=== PATIENT | female | born 1990 | race Caucasian/White ===

== ENCOUNTER 2017-02-27 06:14 | Day surgery (SDC) | payer OTHER ==
[~2017-02-27 06:14] MED LIST: Lactated Ringers 1,000 ML IV SCH
[2017-02-27] MEDS ORDERED: DIPRIVAN 200 MG/20 ML IV ONE (08:00)
[2017-02-27] MEDS ORDERED: Ketamine HCl 50 MG/ML IJ ONE (08:00)
[2017-02-27 09:18] VITALS: BP 130/82; PULSE 61; O2SAT 99
--- NOTE | 2017-02-27 09:29 | OP ---
SURGERY DATE/TIME: 02/27/2017 0743 PREOPERATIVE DIAGNOSIS: Rectal bleeding. POSTOPERATIVE DIAGNOSIS: Normal colon. PROCEDURE: Colonoscopy. SURGEON: Dr. Estrada. ANESTHESIA: MAC. Medications given by anesthesia department. HISTORY: The patient is a 26 year-old white female who reports that she has been having problems with intermittent rectal bleeding. The patient was felt the need to have endoscopic evaluation. The patient was appraised of the risks of the procedure including the risk of perforation, phlebitis, bleeding, and missed lesions. The patient verbalized her understanding and desired to have the procedure performed. DESCRIPTION OF PROCEDURE: The patient was given the medications by the anesthesia department. She had continuous pulse oximetry, ECG monitoring, intermittent blood pressure monitoring, and tidal CO2 monitoring during the examination. She was placed in the left lateral decubitus position. A digital rectal examination was performed and revealed normal anal sphincter tone and no masses. No fissure or significant hemorrhoids were felt. The flexible Olympus pediatric colonoscope was used to intubate the rectum. A view of the colon was developed sequentially to the cecum including a short distance into the terminal ileum. Upon insertion and withdrawal, including a retroflex view in the rectum, no mucosal lesions were encountered. The scope was removed from the patient who tolerated the procedure well and was sent back to OP recovery in good condition.
[2017-02-27] MEDS ORDERED: Lactated Ringers 1,000 ML IV ONE (09:38)
== END 2017-02-27 09:25 | disposition home or self-care (01) ==
LOC: SDC 06:14
PROVIDERS: ATTEND Family Medicine
PROC: 0DJD8ZZ Inspection of Lower Intestinal Tract, Via Natural or Artificial Opening Endoscopic (ICD-10-PCS; principal; 2017-02-27)
DX: K62.5 Hemorrhage of anus and rectum (principal)
CPT/HCPCS: 00810; 84703; J2704

== ENCOUNTER 2017-04-19 03:29 | Emergency (ER) | payer OTHER ==
[2017-04-19] MEDS ORDERED: SUBLIMAZE 100 MCG/2 ML IV ONE (04:06)
[2017-04-19] MEDS ORDERED: Sodium Chloride 0.9% 1000 ML 1,000 ML IV STA (04:06)
[2017-04-19] MEDS ORDERED: Zofran 4 MG/2 ML VIAL IV ONE (04:06)
--- NOTE | 2017-04-19 04:14 | ERPHSYRPT ---
- History of Present Illness Time Seen by Provider: 04/19/17 04:07 Historian: patient Exam Limitations: no limitations Patient Subjective Stated Complaint: pt states that she had gallbladder surgery 8 days ago. states she has been having sharp abd pain which has been incresing. Triage Nursing Assessment: pt alert and oriented, answers questions approp. pt ambulatory with steady gait ntoed. respirations nolabored with lungs cta. abd soft, nontender to light palpation. bowel sounds present in all 4 quads. pt states she is passing flatus and had a normal bm this afternoon. Physician History: This is a 26-year-old white female with history of migraines, endometriosis, ulcers, who has recently had a laparoscopic cholecystectomy 8 days ago she presents with complaints of abdominal pain since yesterday afternoon he states she is not vomiting she does state that she feels nauseous because of the pain. She apparently had been taking [place] and was given a prescription for Toradol as well by doctor Silver. She apparently presented to [facility] emergency room and presented there at 8 :00 last night with complaints of abdominal pain for one week getting worse which was after her cholecystectomy. Patient states she received morphine injections at the [facility] she also received Toradol she states that she actually feels like she might have gotten worse after receiving morphine injections. Apparently the physician at [facility] had contacted Dr. Sheppard and he recommended the patient either present to [facility] for a hiatus scan for follow-up with him tomorrow morning and he could see her in order hydroscan if he felt necessary Patient was [facility] approximately [facility]9 last night she states she got home began to feel worse so she presented to the emergency room here at [facility]. She states that she is having pain in the epigastric region she states she is having nausea because of the pain she is not vomiting. Past medical history includes endometriosis, deviated septum, migraines, ulcers. Past surgical history includes laparoscopic cholecystectomy, colonoscopy, endoscopy Social history includes occasional alcohol use and tobacco use Timing/Duration: other (patient with apparent postoperative epigastric pain after laparoscopic cholecystectomy for a week worse since yesterday afternoon and becoming worse again around midnight after being seen at [facility] last night.) Quality: cramping Abdominal Pain Onset Location: epigastric Pain Radiation: no radiation Severity of Pain-Max: moderate Severity of Pain-Current: moderate Modifying Factors: Improves With: other (patient on [place] at home as well as toradol) Associated Symptoms: No back, No chest pain, No diaphoresis, No fever/chills, No fatigue, No headache, No heartburn, No loss of appetite, No nausea, No neck pain, No rash, No shortness of breath, No syncope, No vomiting, No weakness Previous symptoms: recently seen (Released from [facility] emergency room 22:59 last night) Allergies/Adverse Reactions: No Known Drug Allergies Allergy (Verified 04/19/17 03:51) Home Medications: No Home Meds 1 ea [facility] 04/19/17 [History] Hx Tetanus, Diphtheria Vaccination/Date Given: Yes Hx Influenza Vaccination/Date Given: No Hx Pneumococcal Vaccination/Date Given: No Immunizations Up to Date: Yes - Review of Systems Constitutional: No Fever, No Chills Eyes: No Symptoms Ears, Nose, & Throat: No Symptoms Respiratory: No Cough, No Dyspnea Cardiac: No Chest Pain, No Edema, No Syncope Abdominal/Gastrointestinal: Abdominal Pain, Nausea, No Vomiting, No Diarrhea, No Constipation, No Hematemesis, No Hematochezia, No Melena, No Dysphagia, No Appetite Changes Genitourinary Symptoms: No Dysuria Musculoskeletal: No Back Pain, No Neck Pain Skin: No Rash Neurological: No Dizziness, No Focal Weakness, No Sensory Changes Psychological: No Symptoms Endocrine: No Symptoms All Other Systems: Reviewed and Negative - Past Medical History Pertinent Past Medical History: Yes Neurological History: Migraines ENT History: No Pertinent History Cardiac History: No Pertinent History Respiratory History: No Pertinent History Endocrine Medical History: No Pertinent History Musculoskeletal History: No Pertinent History GI Medical History: GERD, Irritable Bowel, Ulcer History: No Pertinent History Psycho-Social History: Attention Deficit Disorder Female Reproductive Disorders: Endometriosis - Past Surgical History Past Surgical History: Yes Neuro Surgical History: No Pertinent History Cardiac: No Pertinent History Respiratory: Other Gastrointestinal: Other Genitourinary: No Pertinent History Musculoskeletal: No Pertinent History Female Surgical History: Other Other Surgical History: repair deviated septum. endometriosis lap. egd. toxiemia during . 1 natural ,colonoscopy - Social History Smoking Status: Current every day smoker How long have you smoked: 10 years Exposure to second hand smoke: Yes Drug Use: none Patient Lives Alone: No - Female History Hx Last Menstrual Period: 2-3 weeks ago - Nursing Vital Signs Nursing Vital Signs: Initial Vital Signs Temperature 98.9 F Temperature Source Oral Pulse Rate 83 Respiratory Rate 16 Blood Pressure [Right Arm] 137/71 Pain Intensity 6 - Physical Exam General Appearance: mild distress Eye Exam: PERRL/EOMI, eyes nml inspection Ears, Nose, Throat Exam: normal ENT inspection, pharynx normal, moist mucous membranes Neck Exam: normal inspection, non-tender, supple, full range of motion Respiratory Exam: normal breath sounds, lungs clear, No respiratory distress Cardiovascular Exam: regular rate/rhythm, normal heart sounds Gastrointestinal/Abdomen Exam: soft, normal bowel sounds, tenderness ( epigastric tenderness), No distention, No mass, No guarding, No ecchymosis, No pulsatile mass, No rebound, No hernia, No hepatomegaly, No organomegaly, No splenomegaly, No bruit Back Exam: normal inspection, normal range of motion, No CVA tenderness, No vertebral tenderness Extremity Exam: normal inspection, normal range of motion, pelvis stable Neurologic Exam: alert, oriented x 3, cooperative, normal mood/affect, nml cerebellar function, sensation nml, No motor deficits Skin Exam: normal color, warm, dry SpO2 Interpretation: normal (99%) SpO2: 99 Oxygen Delivery: Room Air - Course Nursing assessment & vital signs reviewed: Yes Ordered Tests: Active Orders 24 hr Category Date Time Status IV Insertion STAT Care 04/19/17 04:06 Active AMYLASE Stat Lab 04/19/17 04:21 Completed CBC W DIFF Stat Lab 04/19/17 04:21 Completed CMP Stat Lab 04/19/17 04:21 Completed LIPASE Stat Lab 04/19/17 04:21 Completed Medication Summary Discontinued Medications Generic Name Dose Route Start Last Admin Trade Name Freq PRN Reason Stop Dose Admin Fentanyl Citrate 100 mcg 04/19/17 04:06 Sublimaze 100 Mcg/2 Ml IV 04/19/17 04:07 STAT ONE Sodium Chloride 1,000 mls @ 999 mls/hr 04/19/17 04:06 Sodium Chloride 0.9% 1000 Ml IV 04/19/17 05:06 .Q1H1M STA Meperidine HCl 50 mg 04/19/17 04:35 04/19/17 04:46 Demerol 50 Mg IM 04/19/17 04:36 50 mg STAT ONE Administration Meperidine HCl Confirm 04/19/17 04:41 Demerol 50 Mg Administered 04/19/17 04:42 Dose 50 mg .ROUTE .STK-MED ONE Ondansetron HCl 4 mg 04/19/17 04:06 Zofran 4 Mg/2 Ml Vial IV 04/19/17 04:07 STAT ONE Promethazine HCl 25 mg 04/19/17 04:35 04/19/17 04:46 Phenergan 25 Mg Inj IM 04/19/17 04:36 25 mg STAT ONE Administration Promethazine HCl Confirm 04/19/17 04:41 Phenergan 25 Mg Inj Administered 04/19/17 04:42 Dose 25 mg .ROUTE .STK-MED ONE Lab/Rad Data: Laboratory Result Diagrams 04/19/17 04:21 04/19/17 04:21 Laboratory Results 04/19/17 04/19/17 Range/Units 04:21 04:21 WBC 5.1 (4.0-10.5) K/mm3 RBC 4.16 (4.1-5.4) M/mm3 Hgb 12.5 (12.0-16.0) gm/dl Hct 36.9 (35-47) % MCV 88.7 (78-100) fl MCH 30.0 (26-32) pg MCHC 33.9 (32-36) g/dl RDW 13.1 (11.5-14.0) % Plt Count 272 (150-450) K/mm3 MPV 9.4 (6-9.5) fl Gran % 52.9 (36.0-66.0) % Lymphocytes % 29.4 (24.0-44.0) % Monocytes % 13.0 H (0.0-12.0) % Eosinophils % 4.1 (0.00-5.0) % Basophils % 0.6 (0.0-0.4) % Basophils # 0.03 (0-0.4) Sodium 140 (136-145) mEq/L Potassium 3.7 (3.5-5.1) mEq/L Chloride 106 (98-107) mEq/L Carbon Dioxide 21.8 (21-32) mEq/L Anion Gap 15.9 H (5-15) MEQ/L BUN 15 (9-20) mg/dL Creatinine 0.76 (0.55-1.30) mg/dl Estimated GFR > 60 ML/MIN Glucose 97 (70-110) MG/DL Calcium 8.8 (8.5-10.1) mg/dL Total Bilirubin 0.4 (0.2-1.0) mg/dL AST 217 H (15-37) U/L ALT 171 H (12-78) U/L Alkaline Phosphatase 50 (46-116) U/L Serum Total Protein 7.1 (6.4-8.2) gm/dL Albumin 4.1 (3.4-5.0) g/dL Amylase 42 (25-115) U/L Lipase 101 (73-393) U/L - Progress Progress: improved Progress Note: 04/19/17 04:15 This is a 26-year-old white female with history of endometriosis migraines and ulcers she had a laparoscopic cholecystectomy approximately one week ago which was performed by Dr. Sheppard. She had been discharged with [place] 5/325 and irregular been given a prescription for Toradol she apparently continued to have a epigastric abdominal pain even after surgery and states that yesterday afternoon she became worse and had increasing pain she states she contacted Dr. Faust's office and they had told her if she was getting worse that she should present to the emergency room she states that she went to [facility] emergency room she was seen there at about 8:00 in the evening and at that time had a rather complete workup which included CBC CMP amylase lipase CT of the abdomen urine drug screen and urinalysis Records from that visit have been obtained from [facility] it has been reviewed patient with a normal white count of 6.6 hemoglobin 12.7 hematocrit of 37.2 platelet of 299 chemistry is essentially normal with the exception of a mild elevation of ALT of 51 lipase was 30 and amylase was noted to be 59 both within normal range patient's urinalysis was normal and hCG was negative. CT of the abdomen impression 1 no choledocholithiasis, there is a very small amount of low density fluid contiguous with the postoperative clips within the right upper quadrant. Likely a small amount of residual/resolving hematoma. No evidence of a large fluid collection about the liver, within the right pericolic gutter, or pelvis 2. Evidence for a recently ruptured cyst or follicle of the right ovary. 3. No acute pathology of the larger small bowel with a normal appendix. The doctor at [facility] had a also documented his discussion with Dr. sheppard, and documented that Dr. Jake hernandez stated the patient could be transferred to [facility] for a hida scan or be discharge home to follow -up with Dr. Sheppard in his office in the morning to schedule an outpatient hida scan of the patient at that time. The patient preferred to go home and plan to follow-up with Dr. Sheppard in the morning. He arrives now stating she feels like her pain is worse and so presented to this emergency room. On physical examination patient does have tenderness in the epigastric region, bowel sounds are negative. Physical examination is otherwise essentially normal. Will go ahead and obtain CBC CMP amylase lipase give patient 1 L of normal saline. Because she felt like perhaps her morphine made her feel worse Will give her some fentanyl for pain control as well as Zofran. 04/19/17 05:24 Patient with essentially normal labs with the exception of a LT and AST are elevated. patient states she doesn't feel like a pain medications improve her pain she states they got worse at [facility] with morphine I give patient Demerol and Phenergan she feels like her pain feels worse with Demerol and Phenergan, Nurses were having a hard time getting an IV on this patient I have offered to do a internal jugular on this patient and she has refused, I've discussed the case with Dr. Sheppard, he states patient needs to be transferred to [facility] where a HIDA scan can be performed and an ERCP can be performed if necessary if this is abnormal. The nurses were unable to get an iv. The patient refused external jugular and actually stated she did not want stuck anymore. Case was discussed with Dr. Sheppard, he accepted the patient for transfer to [facility]. Patient decided that she wanted to have her friend drive her so no further attempts were made to place an IV. Patient will be transferred by her family to [facility]. - Departure Time of Disposition: 07:09 Departure Disposition: Transfer ([facility]) Clinical Impression: Epigastric abdominal pain, history of recent cholecystectomy Condition: Fair Critical Care Time: No Referrals: YUN SALINAS [Primary Care Provider] -
[2017-04-19 04:24] LABS: BASOPHIL % 0.6 % (0.0-0.4); Eosinophil % 4.1 % (0.00-5.0); Granulocytes % 52.9 % (36.0-66.0); Lymphocytes % 29.4 % (24.0-44.0); Mean Cell Volume 88.7 fl (78-100); Mean Platelet Volume 9.4 fl (6-9.5); Platelet Count 272 K/mm3 (150-450); Red Blood Count 4.16 M/mm3 (4.1-5.4); Red Cell Distribution Width 13.1 % (11.5-14.0); White Blood Count 5.1 K/mm3 (4.0-10.5)
[2017-04-19] MEDS ORDERED: DEMEROL 50 MG IM ONE (04:35)
[2017-04-19] MEDS ORDERED: Phenergan 25 MG INJ IM ONE (04:35)
[2017-04-19] MEDS ORDERED: DEMEROL 50 MG ONE (04:41)
[2017-04-19] MEDS ORDERED: Phenergan 25 MG INJ ONE (04:41)
[2017-04-19 04:53] LABS: ALBUMIN 4.1 g/dL (3.4-5.0); ALKALINE PHOSPHATASE 50 U/L (46-116); ANION GAP 15.9 MEQ/L (5-15); BILIRUBIN,TOTAL 0.4 mg/dL (0.2-1.0); BLOOD UREA NITROGEN 15 mg/dL (9-20); CHLORIDE 106 mEq/L (98-107); Carbon Dioxide 21.8 mEq/L (21-32); Glucose 97 MG/DL (70-110); LIPASE 101 U/L (73-393); Potassium 3.7 mEq/L (3.5-5.1); SGOT/AST 217 U/L (15-37); SGPT/ALT 171 U/L (12-78); SODIUM 140 mEq/L (136-145); Total Protein 7.1 gm/dL (6.4-8.2)
[2017-04-19 07:11] VITALS: O2SAT 99
[2017-04-19 07:19] VITALS: BP 134/78; PULSE 84
== END 2017-04-19 07:15 | disposition short-term general hospital (02) ==
LOC: ED 03:29
DX: R10.13 Epigastric pain (principal); Z98.890 Other specified postprocedural states; R11.0 Nausea
CPT/HCPCS: 36415; 80053; 82150; 83690; 85025; 96372; 96374; 96375; 99285; J2175; J2550

== ENCOUNTER 2019-01-14 08:48 | Day surgery (SDC) | payer OTHER ==
[2019-01-14] MEDS ORDERED: DIPRIVAN 200 MG/20 ML IV ONE (08:49)
--- NOTE | 2019-01-14 09:01 | HP ---
DATE OF SURGERY: 01/14/2019 HISTORY OF PRESENT ILLNESS: The patient is a 28 year-old with a little bit of melena, upper abdominal pain. She has been on some Prilosec and Zantac ten months ago followed by Dr. Ortiz. She is in need of follow up upper endoscopy. I will see if she has ever had a gastrin level checked as well. It does not sound as if she has had endoscopic ultrasound or not. PAST MEDICAL HISTORY: Biliary dyskinesia. PAST SURGICAL HISTORY: Endoscopy, endometriosis, colonoscopy, deviated septum, laparoscopy as well as cholecystectomy. MEDICATIONS: Famotidine, Zantac. ALLERGIES: NKDA. FAMILY HISTORY: A relative with problems with ulcers in the past as well. SOCIAL HISTORY: No current smoking. REVIEW OF SYSTEMS: Twelve systems reviewed per admission assessment. No chest pain or palpitations other systems negative or noncontributory as above and per preadmission questionnaire. PHYSICAL EXAMINATION: GENERAL: No acute distress. HEENT: Sclerae nonicteric. NECK: No JVD. CHEST: Equal excursion, nonlabored breathing. CVS: Regular rate and rhythm. ABDOMEN: Soft. No peritoneal signs. EXTREMITIES: No significant edema. NEURO: Alert, oriented, moving extremities symmetrically. No gross motor deficits noted. IMPRESSION: Some epigastric pain, heartburn, question of ulcers in the past. She is in need of follow up upper endoscopy for further evaluation. Will check to see if she had gastrin level checked as she is unsure about this. If not she should have that checked as well. Try to get Dr. Ortiz's old reports as well. Otherwise plan EGD possible biopsy as an outpatient. General risk of bleeding or infection, risk of bowel injury or perforation possibly requiring open procedure, small risk of missed or nondiagnosis or incomplete exam possibly requiring barium swallow, other studies or procedures or referral. She understands and agrees to the planned procedure.
[2019-01-14] MEDS ORDERED: Zofran 4 MG/2 ML VIAL ONE (10:59)
[2019-01-14 11:43] VITALS: BP 137/78; PULSE 83; O2SAT 100
--- NOTE | 2019-01-14 14:09 | OP ---
SURGERY DATE/TIME: 01/14/2019 1035 PREOPERATIVE DIAGNOSES: 1) History of ulcer. 2) History of some melena. 3) History of some epigastric pain. 4) Need for follow up upper endoscopy. POSTOPERATIVE DIAGNOSES: 1) Superficial prepyloric ulcers x2. 2) Mild erosive gastritis. PROCEDURES: 1) EGD with cold biopsy of small bowel to evaluate for celiac sprue. 2) Cold biopsy of the antrum to evaluate for Helicobacter pylori. SURGEON: Dr. Ezequiel Faust. ANESTHESIA: MAC. ESTIMATED BLOOD LOSS: Minimal. INDICATIONS: As noted above. Risks and benefits explained in detail and not limited to and consent obtained. DESCRIPTION OF PROCEDURE AND FINDINGS: The patient is taken to the operating room. MAC anesthesia introduced. After official time out and no disagreement with planned procedure, a bite block positioned. Video gastroscope easily passed down the esophagus through the patent pylorus to the junction of the second and third portion of the duodenum. The proximal duodenum grossly unremarkable. No signs of any obvious ulcers or masses. A cold biopsy taken to evaluate for celiac sprue and rule out other causes. The scope pulled back into the stomach. She had two very small superficial ulcerations prepyloric area. Cold biopsy taken to evaluate for Helicobacter pylori. Otherwise she did have some linear streaks in the stomach consistent with some mild erosive gastritis. On retroflex the gastroesophageal junction snug against the scope. There are no signs of any hiatal hernia. Scope is straightened. Gastroesophageal junction noted to be about 40 cm. Z-line crisp. No signs of Dougherty's. No signs of esophagitis at this time. No signs of any mucosal abnormalities on withdrawal of the scope at the esophagus. The patient tolerated the procedure well other than a little bit of coughing with the MAC anesthesia. She tolerated the procedure well. Findings discussed with the family out in the waiting area. I will see her back in the office to go over the results. She is to avoid any aspirin or NSAID. Continue her proton pump inhibitor as approved by her medical physician to take b.i.d. temporarily if okay with her medical physician. In the meantime will see if she had a serum gastrin level in the past or Dr. Ortiz mentioned octreotide gastrinoma scan to rule out other causes.
== END 2019-01-14 11:45 | disposition home or self-care (01) ==
LOC: SDC 08:48
PROVIDERS: ATTEND Surgery
DX: K25.9 Gastric ulcer, unspecified as acute or chronic, without hemorrhage or perforation (principal); K29.00 Acute gastritis without bleeding; R10.13 Epigastric pain
CPT/HCPCS: 84703; 88305; 88342; J2405; J2704

== ENCOUNTER 2024-09-11 14:07 | Day surgery (SDC) | payer OTHER ==
[2024-09-11] MEDS ORDERED: Decadron 4 MG INJ IV ONE (14:08)
[2024-09-11] MEDS ORDERED: Xylocaine-Mpf 2% 5 Ml Vial IJ ONE (14:08)
[2024-09-11] MEDS ORDERED: DIPRIVAN 200 MG/20 ML IV ONE (16:05)
[2024-09-11] MEDS ORDERED: MORPHINE SULFATE 2 MG INJ ONE ×2 (16:46→17:02)
--- NOTE | 2024-09-11 16:49 | XRAY ---
Indication: Left C2-C4 MBB. Intraoperative fluoroscopy provided for 10 seconds. 2 digital spot image submitted for interpretation demonstrates posterior needle tips projecting over the expected left C2-C4 nerve roots. Correlate with intraoperative findings/report.
--- NOTE | 2024-09-11 16:55 | XRAY ---
10 seconds of fluoroscopy was used in surgery for a left C2-C4 MBB.
== END 2024-09-11 17:30 | disposition home or self-care (01) ==
LOC: SDC-PAIN 14:07
PROVIDERS: ATTEND Psychiatry & Neurology Pain Medicine
DX: M47.812 Spondylosis without myelopathy or radiculopathy, cervical region (principal)
CPT/HCPCS: 64490; 64491; 72040; 77002; J1100; J2270; J2704